=== PATIENT | female | born 1995 | race Caucasian/White ===

== ENCOUNTER 2017-06-09 12:41 | Outpatient (CLI) | payer BC ==
--- NOTE | 2017-06-09 16:13 | ULT ---
OB ULTRASOUND: HISTORY: anatomy. FINDINGS: A single live intrauterine gestation is seen with measurements corresponding to an estimated gestatio nal age of 19 weeks 5 days and ALEAH at 10/29/17. The estimated weight measures 301 gm or 11 ounc es. measurements are as follows: BPD 4.75 cm, 20 weeks 3 days HC 17.41 cm, 20 weeks 0 days AC 13.56 cm, 19 weeks 0 days FL 3.23 cm, 20 weeks 0 days heartbeat measures 1.5 b.p.m. Placenta is posteriorly located without evidence of placenta pre via. KALLI measures 11 cm. A 3-vessel cord, cord insertion, kidneys, bladder, stomach, 4-chamber heart, lateral ventricles , cerebellum, spine, upper and lower extremities are well visualized and demonstrate no abnormalities . The lips and nose are not satisfactorily seen. IMPRESSION: Single live intrauterine of 19 weeks 5 days, estimated gestational age and estimated date o f delivery at 10/29/17. POS: OFF
== END 2017-06-09 12:42 | disposition home or self-care (01) ==
LOC: ULT 12:41
PROVIDERS: ATTEND Family Medicine
DX: Z34.92 Encounter for supervision of normal pregnancy, unspecified, second trimester (principal); Z3A.19 19 weeks gestation of pregnancy
CPT/HCPCS: 76805

== ENCOUNTER → 2017-10-08 | Day surgery (SDC) | payer BC ==
[2017-10-08 19:07] VITALS: BMI 23.0
--- NOTE | 2017-10-08 19:21 | PDOC.LDHP ---
Labor and Delivery H&P Chief complaint: contractions HPI: 22 y/o at 37w1d, patient of Dr. Regi Laureano, presents with contractions since 3pm. Denies VB, LOF, UTI sx or decreased FM. ROS neg for HEENT, cv, pulm, gi, gu, neuro, psych, skin, musculoskeletal, or constitutional symptoms other than mentioned above. OB History Details: 1 prior term Current complications: none Past Medical History: Negative Current medications: pre- vitamins Previous surgical history: other (vaginal cyst removal) Allergies/Adverse Reactions: Allergies Allergy/AdvReac Type Severity Reaction Status Date / Time No Known Allergies Allergy Verified 10/08/17 19:10 Social history: none - Physical Exam Vital signs reviewed and normal: yes General: NAD, resting Lungs: nonlabored breathing Abdomen: gravid Extremeties: no edema FHT: category 1 (140s, mod variability, + accels, no decels) [place] contractions every: none - Vaginal Exam cm dilated: 4 (unchanged after 1 hour) Effacement: 50% Station: -2 - Assessment 22 y/o at 37w1d with no e/o active labor. status reassuring with reactive NST. - Plan -: D/c home with precautions. Advised to keep all appointments.
== END | disposition home or self-care (01) ==
LOC: L&D/OP 18:29
PROVIDERS: ATTEND Family Medicine
DX: O47.1 False labor at or after 37 completed weeks of gestation (principal); Z3A.37 37 weeks gestation of pregnancy

== ENCOUNTER 2017-10-14 03:24 | Inpatient (IN) | payer BC ==
[2017-10-14] MEDS ORDERED: Carboprost 250 MCG/ML AMP IM PRN (03:33)
[2017-10-14] MEDS ORDERED: Misoprostol 200 MCG TAB PR PRN (03:33)
[2017-10-14] MEDS ORDERED: Ondansetron HCl/PF 4 MG/2 ML Vial IVP PRN ×3 (03:33→22:05)
[2017-10-14] MEDS ORDERED: Ibuprofen 800 MG TAB PO PRN (03:33)
[2017-10-14] MEDS ORDERED: HYDROcodone/Acetaminophen 5/325 mg Tablet PO PRN ×4 (03:33→22:06)
[2017-10-14] MEDS ORDERED: Promethazine HCl 25 MG/ML VIAL IM PRN (03:33)
[2017-10-14] MEDS ORDERED: Lidocaine 1% (PF) 30 ML VIAL SC PRN (03:33)
[2017-10-14] MEDS ORDERED: Diphenoxylate HCl/Atropine Tablet PO PRN ×2 (03:33)
[2017-10-14] MEDS ORDERED: Methylergonovine 0.2 MG/ML VIAL IM PRN (03:33)
[2017-10-14] MEDS ORDERED: Lactated Ringer's 1,000 ML IV SCH (03:45)
[2017-10-14] MEDS: NS / Oxytocin 40 units/1000ml 1,000 ML IV PRN ×2 (03:55→05:38)
[2017-10-14 04:36] VITALS: BMI 23.0
[2017-10-14 04:39] LABS: Hemoglobin 9.6 g/dL (12.0-16.0); Mean Corpuscular HGB CONC 33.6 g/dL (32.0-36.0); Mean Corpuscular Hemoglobin 27.8 pg (27.0-31.0); Mean Corpuscular Volume 82.8 fl (81.0-99.0); Mean Platelet Volume 9.4 fL (7.4-10.4); Platelet Count 172 thou/uL (130-400); Red Blood Cell (RBC) Count 3.44 mill/uL (4.20-5.40); White Blood Cell (WBC) Count 15.2 thou/uL (4.8-10.8)
[2017-10-14 05:09] LABS: Syphilis Antibody Nonreactive (Nonreactive); Syphilis Antibody Index 0.06 S/CO (<1.00 Non-Reactive)
[2017-10-14 06:45] LABS: Hep B Surf Ag Reactive S/CO (NonReactive)
[2017-10-14] MEDS ORDERED: Milk Of Magnesia 30 ML UDCUP PO PRN ×2 (07:17→22:05)
[2017-10-14] MEDS ORDERED: Lanolin Ointment 7 GM TUBE TOP PRN ×2 (07:17→22:05)
[2017-10-14] MEDS ORDERED: Benzocaine/Menthol 20-0.5% 60 ML CAN TOP PRN ×2 (07:17→22:04)
[2017-10-14] MEDS ORDERED: Bisacodyl 10 MG SUPP PR PRN ×2 (07:17→22:04)
[2017-10-14] MEDS ORDERED: Acetaminophen/Codeine 30-300mg Tablet PO PRN ×2 (07:17→22:04)
[2017-10-14] MEDS ORDERED: Preparation H Ointment 28 GM TUBE PR PRN ×2 (07:17→22:05)
[2017-10-14] MEDS ORDERED: NS / Oxytocin 40 units/1000ml 1,000 ML IV SCH (07:17)
[2017-10-14] MEDS ORDERED: Docusate Calcium (SURFAK) 240 MG CAP PO SCH (09:00)
[2017-10-14] MEDS ORDERED: Prenatal Vitamin 1 TAB PO SCH (09:00)
[2017-10-14] MEDS: Ferrous Sulfate 325 MG TAB PO SCH ×2 (09:18→18:26)
[2017-10-14] MEDS: Ibuprofen 800 MG TAB PO SCH ×2 (09:19→15:33)
[2017-10-14] MEDS: Docusate Calcium (SURFAK) 240 MG CAP PO SCH (22:30)
[2017-10-15] MEDS: Ibuprofen 800 MG TAB PO SCH ×2 (00:09→09:02)
[2017-10-15 07:30] LABS: Hep B Surface AG-Rflx Sendout Negative (Negative)
[2017-10-15] MEDS ORDERED: Ferrous Sulfate 325 MG TAB PO SCH (08:00)
[2017-10-15 08:16] VITALS: BP 117/73; TEMP 98
[2017-10-15] MEDS ORDERED: Prenatal Vitamin 1 TAB PO SCH (09:00)
== END 2017-10-15 15:05 | disposition home or self-care (01) | DRG 775 ==
LOC: L&D/OP 03:24 → L&D 03:43 → UNDOADMIN 03:43 → 3SW 03:49 → L&D 06:44 → UNDODISIN 19:25
PROVIDERS: ADMIT Family Medicine; ATTEND Family Medicine
PROC: 10E0XZZ Delivery of Products of Conception, External Approach (ICD-10-PCS; principal; 2017-10-14)
PROC: 0HQ9XZZ Repair Perineum Skin, External Approach (ICD-10-PCS; 2017-10-14)
DX: O62.3 Precipitate labor (principal); Z3A.38 38 weeks gestation of pregnancy; Z37.0 Single live birth; O70.0 First degree perineal laceration during delivery
CPT/HCPCS: 36415; 85027; 86780; 86850; 86900; 86901; 87340; 99285; J2001; J2210